=== PATIENT | female | born 1970 | race Caucasian/White ===

== ENCOUNTER 2023-05-16 17:01 | Emergency (ER) | payer SELFPAY ==
[2023-05-16] MEDS ORDERED: Benzonatate 100 MG CAP ONE (17:45)
[2023-05-16] MEDS ORDERED: Ipratropium/Albuterol 3 ML NEB ONE (17:46)
== END 2023-05-16 18:59 | disposition home or self-care (01) ==
LOC: CSHERS 17:01
DX: R05.9 Cough, unspecified (principal); I10 Essential (primary) hypertension
CPT/HCPCS: 71045; 94640; J7620